=== PATIENT | female | born 1995 | race Hispanic/Latino ===

== ENCOUNTER 2016-11-05 13:47 | Emergency (ER) | payer MEDICAID ==
[2016-11-05 14:04] VITALS: BP 115/64; PULSE 67; RESP 16; TEMP 98.9; O2SAT 98
[2016-11-05] MEDS ORDERED: Albuterol-Ipratrop 3 mg / 0.5 (3 ml) UD INH STA (14:09)
--- NOTE | 2016-11-05 14:11 | ED PDOC ---
HPI: CCC, URI, Sore Throat Time Seen by Provider: 11/05/16 14:09 Chief Complaint (Nursing): Cough, Cold, Congestion Chief Complaint (Provider): Cough History Per: Patient History/Exam Limitations: no limitations Onset/Duration Of Symptoms: Days (x5) Current Symptoms Are (Timing): Still Present Associated Symptoms: Sore Throat, Cough, Sputum (green/yellow). denies: Fever, Chills Severity: Mild Additional Complaint(s): Patient is a 21 year old female, who has a history of asthma, presents to the ED complaining of cough x5 days. Cough is associated with sore throat, shortness of breath, and greenish/yellowish sputum. Denies fever or chills. PMD: Nya Rivera Past Medical History Reviewed: Historical Data, Nursing Documentation, Vital Signs Vital Signs: Last Vital Signs Temp 98.9 F 11/05/16 13:59 Pulse 67 11/05/16 13:59 Resp 16 11/05/16 13:59 BP 115/64 11/05/16 13:59 Pulse Ox 98 11/05/16 14:53 - Medical History PMH: Asthma - Surgical History Surgical History: No Surg Hx - Family History Family History: States: No Known Family Hx - Social History Current smoker - smoking cessation education provided: Yes (1/2 pack a day) - Immunization History Hx Tetanus Toxoid Vaccination: No Hx Influenza Vaccination: No Hx Pneumococcal Vaccination: No - Home Medications Home Medications: Ambulatory Orders Medication Instructions Recorded Albuterol HFA [Ventolin HFA 90 2 puff IH Q6 #200 puff 11/05/16 mcg/actuation (8 g)] predniSONE [predniSONE Tab] 20 mg PO BID #8 tab 11/05/16 - Allergies Allergies/Adverse Reactions: Allergies Allergy/AdvReac Type Severity Reaction Status Date / Time No Known Allergies Allergy Verified 05/11/15 11:24 Review of Systems ROS Statement: Except As Marked, All Systems Reviewed And Found Negative Constitutional: Negative for: Fever, Chills ENT: Positive for: Throat Pain Respiratory: Positive for: Cough, Shortness of Breath, Sputum (green/yellow) Physical Exam - Reviewed Nursing Documentation Reviewed: Yes Vital Signs Reviewed: Yes - Physical Exam Appears: Positive for: Well, Non-toxic, No Acute Distress Head Exam: Positive for: ATRAUMATIC, NORMAL INSPECTION, NORMOCEPHALIC Skin: Positive for: Normal Color, Warm, DRY Eye Exam: Positive for: Normal appearance, EOMI ENT: Positive for: Normal ENT Inspection Neck: Positive for: Normal, Painless ROM Cardiovascular/Chest: Positive for: Regular Rate, Rhythm. Negative for: Gallop , Murmur Respiratory: Positive for: Wheezing (diffuse wheezing bilaterally). Negative for: Accessory Muscle Use, Rhonchi, Respiratory Distress Extremity: Positive for: Normal ROM Neurologic/Psych: Positive for: Alert, Oriented - ECG O2 Sat by Pulse Oximetry: 98 (RA) Pulse Ox Interpretation: Normal - Radiology X-Ray: Interpreted by Me X-Ray Interpretation: No Acute Disease Nebulizer Treatments/Peak Flow - Duonebs Number of Bronchodilator Doses given?: 1 - Steroid Treatment Steroid: Oral - Clinical Response Clinical Response: Improved Medical Decision Making Medical Decision Making: Time: 14:10 Impression: Bronchitis r/o PNA Plan: UPreg CXR Albuterol 3 ml INH Prednisone 60 mg PO Nebulizer Tx pt improved in ed will be rx al buteral and prednsisone advised to f.u with pmd to have PFTs Scribe Attestation: Documented by Darling Jacques acting as a scribe for CHRISTI Lewis. Provider Attestation: All medical record entries made by the Scribe were at my direction and personally dictated by me. I have reviewed the chart and agree that the record accurately reflects my personal performance of the history, physical exam, medical decision making, and the department course for this patient. I have also personally directed, reviewed, and agree with the discharge instructions and disposition. Disposition - Clinical Impression Clinical Impression: Wheezing - Patient ED Disposition Is Patient to be Admitted: No Counseled Patient/Family Regarding: Studies Performed, Diagnosis, Need For Followup, Rx Given - Disposition Disposition: Routine/Home Disposition Time: 14:57 Condition: STABLE Prescriptions: Albuterol HFA [Ventolin HFA 90 mcg/actuation (8 g)] 2 puff IH Q6 #200 puff predniSONE [predniSONE Tab] 20 mg PO BID #8 tab Instructions: Asthma (ED), Reactive Airways Disease (ED), Bronchospasm (ED), Wheezing (ED)
--- NOTE | 2016-11-05 14:53 | RAD ---
HISTORY: cough COMPARISON: No prior. TECHNIQUE: Chest PA and lateral FINDINGS: LUNGS: No active pulmonary disease. PLEURA: No significant pleural effusion identified. No pneumothorax apparent. CARDIOVASCULAR: Normal. OSSEOUS STRUCTURES: No significant abnormalities. VISUALIZED UPPER ABDOMEN: Normal. OTHER FINDINGS: None. IMPRESSION: No active disease.
== END 2016-11-05 15:34 | disposition home or self-care (01) ==
LOC: H.ER 13:47
DX: J45.909 Unspecified asthma, uncomplicated (principal)